=== PATIENT | male | born 1955 | race African-American/Black ===

== ENCOUNTER 2016-06-12 16:02 | Emergency (ER) | payer OTHER ==
[~2016-06-12] VITALS: Ht 188 cm; Wt 84.0 kg
[~2016-06-12 16:02] MED LIST: NAPR500 PO
[2016-06-12 16:04] VITALS: BP_SYST 133; BP_DIAS 9; BP_DIAS 94; PULSE 73; RESP 16; TEMP 98.1; O2SAT 99
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
[2016-06-12] MEDS ORDERED: SODIUM CHLORIDE 0.9% FLUSH 10 ML FLUSH IVF PRN (17:45)
[2016-06-12] MEDS ORDERED: MORPHINE SULFATE 4 MG/ML INJ IV ONE (17:45)
[2016-06-12 17:51] VITALS: O2SAT 99
[2016-06-12 18:01] LABS: BASOPHIL # 0.1 TH/MM3 (0-0.2); BASOPHIL % 1.4 % (0.0-2.0); EOSINOPHIL # 0.2 TH/MM3 (0-0.4); EOSINOPHIL % 5.6 % (0.0-4.0); HEMATOCRIT 43.1 % (39.0-51.0); HEMO FLAGS DIFF FINAL; MEAN CELL VOLUME 89.8 FL (80.0-100.0); MEAN CORPUSCULAR HEMOGLOBIN 30.4 PG (27.0-34.0); MEAN CORPUSCULAR HGB CONC 33.8 % (32.0-36.0); MONO % 13.5 % (0.0-8.0); NEUT % 25.5 % (16.0-70.0); PLATELET COUNT 267 TH/MM3 (150-450); RED CELL DISTRIBUTION WIDTH 13.7 % (11.6-17.2); WHITE BLOOD COUNT 3.8 TH/MM3 (4.0-11.0)
[2016-06-12 18:10] VITALS: BP 122/74; PULSE 61; RESP 18; O2SAT 99
[2016-06-12 18:11] VITALS: RESP 18
[2016-06-12 18:14] LABS: APTT (PATIENT) 26.4 SEC (24.3-30.1); PROTHROMBIN TIME - PATIENT 10.6 SEC (9.8-11.6)
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
[2016-06-12 18:21] LABS: ALKALINE PHOSPHATASE 90 U/L (45-117); ALT (GPT) 14 U/L (12-78); TOTAL BILIRUBIN ADULT 0.3 MG/DL (0.2-1.0)
[2016-06-12 18:26] LABS: ANION GAP 6 MEQ/L (5-15); AST (GOT) 9 U/L (15-37); BICARBONATE 26.3 MEQ/L (21.0-32.0); BLOOD UREA NITROGEN 14 MG/DL (7-18); CHLORIDE 110 MEQ/L (98-107); GLOMERULAR FILTRATION RATE 69 ML/MIN (>89); POTASSIUM 3.6 MEQ/L (3.5-5.1); SODIUM (NA) 142 MEQ/L (136-145)
[2016-06-12] MEDS ORDERED: IOHEXOL 350 MG/ML 10 ML VIAL (for RAD DIAG) IV ONE (19:51)
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
[2016-06-12] MEDS ORDERED: ROBA500T PO (20:57)
[2016-06-12] MEDS ORDERED: HYDR-3533 PO (20:57)
== END 2016-06-12 21:16 | disposition home or self-care (01) ==
LOC: NEPD 16:02
DX: M48.56XA Collapsed vertebra, not elsewhere classified, lumbar region, initial encounter for fracture (principal); D72.819 Decreased white blood cell count, unspecified; V49.50XA Passenger injured in collision with unspecified motor vehicles in traffic accident, initial encounter
CPT/HCPCS: 70450; 71010; 71260; 72125; 72128; 72131; 74177; 80053; 85025; 85610; 85730; 86850; 86900; 86901; 96374; 99284; J2270; L0150; Q9967

== ENCOUNTER 2017-01-17 18:35 | Emergency (ER) | payer OTHER ==
[~2017-01-17] VITALS: Ht 188 cm; Wt 85.0 kg
[~2017-01-17 18:35] MED LIST changes: +HYDR-3533 PO; -NAPR500 PO; +ROBA500T PO
[2017-01-17 18:37] VITALS: BP 126/83; PULSE 82; RESP 14; TEMP 98.3; O2SAT 97
[2017-01-17] MEDS ORDERED: PRED10PA PO (19:10)
[2017-01-17] MEDS ORDERED: CYCL10TA PO ×2 (19:10→19:24)
--- NOTE | 2017-01-17 19:23 | PD ---
HPI Chief Complaint: Skin Problem Time Seen by Provider: 18:59 Travel History International Travel<30 days: No Contact w/Intl Traveler<30days: No Traveled to known affect area: No History of Present Illness HPI Patient comes emergency Department complaining of low back pain that began earlier today after picking up a log. Patient states that he's been having intermittent sharp stabbing pain in his low back since and is worse with bending forward. Patient denies any trauma, loss or change in bowel or bladder , numbness or tingling anywhere, fevers, IV drug use, abdominal pain, chest pain , shortness breath, or radiation of the pain. Patient denies doing anything for prior to coming to the emergency department. Denies anything making it better. Patient also concern over possible poison jose on his right forearm and first noticed today. Patient denies doing anything for this. States it is very pruritic in nature. PFSH Past Medical History Arthritis: No Asthma: No Blood Disorders: No Heart Rhythm Problems: No Cancer: No Cardiovascular Problems: No High Cholesterol: No Chest Pain: Yes Congestive Heart Failure: No COPD: No Cerebrovascular Accident: No Diabetes: No GERD: No Genitourinary: No Hiatal Hernia: No Musculoskeletal: No Neurologic: Yes ("BACK BROKEN" NOV 2011) Psychiatric: No Reproductive: No Respiratory: No Migraines: No Seizures: No Sickle Cell Disease: No Sleep Apnea: No Thyroid Disease: No Ulcer: No Past Surgical History Body Medical Devices: "BATTERY STIMULATOR" IN THE ANKLE SINCE Pacemaker: No Other Surgery: Yes Social History Alcohol Use: No Tobacco Use: Yes Substance Use: No Allergies-Medications (Allergen,Severity, Reaction): Coded Allergies: acetaminophen (Unverified Allergy, Severe, 01/17/17) propoxyphene (Unverified Allergy, Severe, 01/17/17) penicillin G (Unverified Allergy, Intermediate, 01/17/17) Reported Meds & Prescriptions Reported Meds & Active Scripts Active Reported Prednisone 10 Mg Tab 10 Mg PO DAILY Flexeril (Cyclobenzaprine HCl) 10 Mg Tab 10 Mg PO TID Review of Systems Except as stated in HPI: all other systems reviewed are Neg Physical Exam Narrative GENERAL: Well-developed, well nourished, in no acute distress, and non-ill appearing. SKIN: Focused skin assessment warm and dry. Patient has a bumps on his right forearm. Bumps appear consistent with bug bites and not poison jose. There is no crepitus, fluctuation, induration, drainage, or other signs of infection. HEAD: Atraumatic. Normocephalic. EYES: Pupils equal and round. EOMI. No scleral icterus. No injection or drainage. ENT: No nasal bleeding or discharge. Mucous membranes pink and moist. NECK: Trachea midline. Supple. No nuclear rigidity. RESPIRATORY: No accessory muscle use. No respiratory distress. GASTROINTESTINAL: Abdomen soft, non-tender, nondistended, and no guarding. Hepatic and splenic margins not palpable. No pulsatile mass. MUSCULOSKELETAL: No obvious deformities. No clubbing. No cyanosis. No edema. Full range of motion. Patient reports tenderness to palpation right lateral lumbar muscles. Straight leg test negative bilaterally. There is no tenderness or crepitus over the lumbar spine. NEUROLOGICAL: Awake and alert. No obvious cranial nerve deficits. Motor grossly within normal limits. Normal speech. PSYCHIATRIC: Appropriate mood and affect; insight and judgment normal. Data Data Last Documented VS Vital Signs Date Time Temp Pulse Resp B/P (MAP) Pulse Ox O2 Delivery O2 Flow Rate FiO2 01/17/17 19:20 01/17/17 18:37 98.3 82 14 97 Orders Orders Ed Discharge Order (01/17/17 19:23) MDM Medical Decision Making Medical Screen Exam Complete: Yes Emergency Medical Condition: Yes Differential Diagnosis Fracture, strain, contusion, rash, poison jose, but bites, cellulitis, folliculitis, other Narrative Course The patient presented complaining of back pain. There was no history of recent fall or blunt trauma. However, history elicited activity likely causing muscular strain and injury. There was no evidence to support genitourinary etiology. There is also no evidence to suggest vascular pathology such as AAA dissection. No fevers or other evidence to suspect infectious processes, abscess , osteomyelitis etc. The patients neurological exam is normal with normal motor and sensory. There is no saddle paresthesias reported and no bowel or bladder incontinence or retention. I suspect the pain is mechanical in nature. Clinical suspicion, plan of care and management was discussed with the patient. The patient was instructed to follow up with their health care provider. The patient was also instructed to return if the pain worsened, changed, or developed weakness or bowel or bladder trouble. The patient agreed with plan. The patient appears to have an insect bites. The area is not injected, tender, or warm. It does not appear cellulitic at this time. The patient was discharged home on steroids but H1 ruba was recommended for treatment. Diagnosis and treatment plan was agreed upon. The patient is to return if worsen, spreads or fever develops. Patient in no obvious distress upon re-evaluation. Patient was asked if they wanted to speak to my attending, which the patient did not wish to do at this time. Any questions/concerns in reference to patient diagnosis/condition discussed and clarified prior to patient's discharge. Reinforced sheer importance of close follow up with patient's primary physician or primary care clinic. Instructed patient to return to ED immediately, if symptoms return/ worsen. Patient showed understanding of above instructions. Further instructions and recommendations were detailed in discharge paperwork. Patient ambulated without difficulty out of ED at discharge. Diagnosis Primary Impression: Low back strain Qualified Codes: S39.012A - Strain of muscle, fascia and tendon of lower back , initial encounter Additional Impression: Rash Referrals: [facility] Patient Instructions: Acute Rash (ED), General Instructions, Insect Bite or Sting (ED), Low Back Strain (ED), Lower Back Exercises (ED) Additional Instructions: Follow-up with your primary care physician this week for reevaluation. Take all medication as prescribed. Use [id number] calamine lotion for rash. Follow instructions on the packaging. Use [id number] Claritin or Zyrtec or Benadryl for itching as needed. Follow instructions on the packaging. Return to the emergency department if symptoms get worse. Med/Other Pt SpecificInfo: Prescription(s) given Disposition: 01 DISCHARGE HOME Condition: Stable Sander Alejandre Jan 17, 2017 19:23
[2017-01-17] MEDS ORDERED: PRED10 PO (19:24)
== END 2017-01-17 19:50 | disposition home or self-care (01) ==
LOC: NEPD 18:35
DX: S39.012A Strain of muscle, fascia and tendon of lower back, initial encounter (principal); X50.0XXA Overexertion from strenuous movement or load, initial encounter; R21 Rash and other nonspecific skin eruption; Z72.0 Tobacco use
CPT/HCPCS: 99282

== ENCOUNTER 2017-08-01 12:49 | Emergency (ER) | payer OTHER ==
[~2017-08-01] VITALS: Ht 188 cm; Wt 85.0 kg
[~2017-08-01 12:49] MED LIST changes: +CYCL10TA PO; -HYDR-3533 PO; +PRED10 PO; -ROBA500T PO
[2017-08-01 12:55] VITALS: BP 140/91; PULSE 91; RESP 16; TEMP 98.1; O2SAT 97
[2017-08-01] MEDS ORDERED: KETOROLAC TROMETHAMINE 60 MG/2 ML (IM) VIAL IM ONE (14:30)
[2017-08-01] MEDS ORDERED: NAPR500T2 PO (14:32)
--- NOTE | 2017-08-01 14:32 | PD ---
HPI Chief Complaint: Pain: Acute or Chronic Time Seen by Provider: 14:11 Travel History International Travel<30 days: No Contact w/Intl Traveler<30days: No Traveled to known affect area: No History of Present Illness HPI Is a 61-year-old male presents to the emergency department complaining of pain in his ribs and back. States he fell out of a tree several months ago. Had pain ever since. Up and down and the pain severity. Worse at night when he rolls over. Was working the day and pain got worse he came into the emergency department. Denies any medical history. Not taking any medications at home. History Past Medical History Medical History: Denies Significant Hx Social History Alcohol Use: No Tobacco Use: Yes Allergies-Medications (Allergen,Severity, Reaction): Coded Allergies: acetaminophen (Unverified Allergy, Severe, 08/01/17) propoxyphene (Unverified Allergy, Severe, 08/01/17) penicillin G (Unverified Allergy, Intermediate, 08/01/17) Reported Meds & Prescriptions Reported Meds & Active Scripts Active Reported Prednisone 10 Mg Tab 10 Mg PO DAILY Flexeril (Cyclobenzaprine HCl) 10 Mg Tab 10 Mg PO TID Review of Systems Except as stated in HPI: all other systems reviewed are Neg Physical Exam Narrative GENERAL: 61-year-old man, no acute distress. SKIN: Focused skin assessment warm/dry. HEAD: Atraumatic. Normocephalic. EYES: Pupils equal and round. No scleral icterus. No injection or drainage. ENT: No nasal bleeding or discharge. Mucous membranes pink and moist. NECK: Trachea midline. No JVD. CARDIOVASCULAR: Regular rate and rhythm. No murmur appreciated. RESPIRATORY: No accessory muscle use. Clear to auscultation. Breath sounds equal bilaterally. GASTROINTESTINAL: Abdomen soft, non-tender, nondistended. Hepatic and splenic margins not palpable. MUSCULOSKELETAL: No obvious deformities. No clubbing. No cyanosis. No edema. NEUROLOGICAL: Awake and alert. No obvious cranial nerve deficits. Motor grossly within normal limits. Normal speech. PSYCHIATRIC: Appropriate mood and affect; insight and judgment normal. Data Data Last Documented VS Vital Signs Date Time Temp Pulse Resp B/P (MAP) Pulse Ox O2 Delivery O2 Flow Rate FiO2 08/01/17 12:55 98.1 91 16 140/91 (107) 97 MDM Medical Decision Making Medical Screen Exam Complete: Yes Emergency Medical Condition: Yes Medical Record Reviewed: No Differential Diagnosis Rib fracture, contusion, back injury, acute on chronic pain, other Narrative Course Medical decision making 61-year-old man, acute on chronic right rib pain and back pain resulting from a fall several months ago. Recommend Tylenol for pain, NSAIDs sparingly as needed. Diagnosis Primary Impression: Rib pain on right side Additional Impression: Back pain Patient Instructions: General Instructions Additional Instructions: Take Tylenol/acetaminophen 1000 mg 3 times daily as needed for pain. Take Naprosyn sparingly in addition to Tylenol as needed for severe pain. Follow with her primary doctor for any new or worsening symptoms. Med/Other Pt SpecificInfo: Prescription(s) given Scripts Naproxen (Naproxen) 500 Mg Tab 500 MG PO BID, #20 TAB 0 Refills Prov: Vj Hassan MD 08/01/17 Disposition: 01 DISCHARGE HOME Condition: Stable Vj Hassan MD August 01, 2017 14:32
== END 2017-08-01 15:02 | disposition home or self-care (01) ==
LOC: NEPD 12:49
DX: R07.81 Pleurodynia (principal); M54.9 Dorsalgia, unspecified; Z72.0 Tobacco use
CPT/HCPCS: 96372; 99283; J1885